=== PATIENT | male | born 1990 | race Caucasian/White ===

== ENCOUNTER → 2023-02-02 | Outpatient (CLI) | payer SELFPAY ==
--- NOTE | 2023-02-02 08:41 | US_ITS ---
PROCEDURES: ULTRASOUND AORTA REASON FOR EXAM: Male, 32 years old. PALPATIONS TECHNIQUE: Ultrasound evaluation of the aorta was performed with real-time and static manley-scale imaging. COMPARISON: None. FINDINGS: There is no elongation or tortuosity of the abdominal aorta. Aorta measures: Proximal 2.2 cm. Middle 2.1 cm. Distal 1.7 cm. Aorta measure transversely: Proximal 2.1 cm. Middle 1.4 cm. Distal 1.5 cm. Right iliac artery measures: 1.5 cm. Right iliac artery measure transversely: 1.1 cm. Left iliac artery measures: 1.0 cm. Left iliac artery measure transversely: 0.8 cm. There is no demonstrated aneurysm.. US/Aorta IMPRESSION: Normal abdominal aorta. Electronically Signed: Abraham Dumont MD at 15:11 EDT ,
== END | disposition home or self-care (01) ==
PROVIDERS: PCP Family Medicine
DX: R00.2 Palpitations (principal)
CPT/HCPCS: 76775